=== PATIENT | female | born 1940 | race Asian ===

== ENCOUNTER 2017-03-10 07:45 | Emergency (ER) | payer OTHER ==
[~2017-03-10] VITALS: Ht 152.4 cm; Wt 61.4 kg
[2017-03-10] MEDS ORDERED: GLIP5 PO (07:51)
[2017-03-10] MEDS ORDERED: LOSA50TA37 PO (07:51)
[2017-03-10] MEDS ORDERED: AMLO-511 PO (07:51)
[2017-03-10] MEDS ORDERED: SIMV-260 PO (07:51)
[2017-03-10] MEDS ORDERED: NORT25 PO (07:51)
[2017-03-10] MEDS ORDERED: ALEN70TA48 PO (07:51)
[2017-03-10] MEDS ORDERED: METF850T2 PO (07:51)
[2017-03-10] MEDS ORDERED: ACETAMINOPHEN 1000 MG/ISO-OSM 100 ML IV ONE (08:15)
[2017-03-10] MEDS ORDERED: SODIUM CHLORIDE 0.9% 1,000 ML IV ONE (08:15)
[2017-03-10 08:25] LABS: EOSINOPHILS # (AUTO) 0.11 K/uL (0.00-0.70); EOSINOPHILS % (AUTO) 1.18 % (1.0-6.0); HEMATOCRIT 33.6 % (36-46); HEMOGLOBIN 11.4 g/dL (12.0-16.0); LYMPHOCYTES # (AUTO) 0.5 K/uL (1.0-4.8); LYMPHOCYTES % (AUTO) 5.3 % (22.0-44.0); MEAN CORPUSCULAR HEMOGLOBIN 28.7 pg (26.0-34.0); MEAN CORPUSCULAR HGB CONC 33.9 G/dL (31.0-37.0); MEAN CORPUSCULAR VOLUME 85 fL (80-100); MONOCYTES # (AUTO) 0.3 K/uL (0.1-1.0); MONOCYTES % (AUTO) 3.5 % (2.0-9.0); NEUTROPHILS # (AUTO) 8.5 K/uL (1.8-7.7); PLATELET COUNT (AUTO) 135 K/uL (150-450); RED BLOOD CELL COUNT(AUTO) 3.97 MIL/uL (4.00-5.20); RED CELL DISTRIBUTION WIDTH 14.8 % (11.5-14.5); WHITE BLOOD COUNT (AUTO) 9.4 K/uL (4.5-11.0)
[2017-03-10 08:26] LABS: NEUTROPHILS % (AUTO) 90.1 % (40.0-70.0)
[2017-03-10 08:27] LABS: RBC MORPHOLOGY COMMENT NORMAL RBC MORPH
[2017-03-10 08:33] LABS: APPEARANCE,URINE CLOUDY (CLEAR); GLUCOSE, URINE (UA) NEGATIVE (NEGATIVE); KETONES,URINE 15 mg/dL (NEGATIVE); LEUKOCYTE ESTERASE ,URINE MODERATE (NEGATIVE); OCCULT BLOOD,URINE MODERATE (NEGATIVE); PH,URINE 5.5 (5.0-8.0); PROTEIN,URINE SEE CONFIRM (NEGATIVE)
[2017-03-10 08:36] LABS: CALCIUM, TOTAL 8.3 mg/dL (8.8-10.5); CREATININE 1.03 mg/dL (0.60-1.30); POTASSIUM 3.9 mmol/L (3.5-5.1)
[2017-03-10 08:41] LABS: BILIRUBIN,TOTAL 1.1 mg/dL (0.1-1.0); TOTAL PROTEIN, SERUM 6.7 g/dL (6.4-8.2)
[2017-03-10 08:46] LABS: LACTIC ACID 1.5 mmol/L (0.4-2.0)
[2017-03-10 08:47] LABS: SULFOSALICYLIC ACID,URINE 3+ (Negative)
[2017-03-10 08:48] LABS: WBC,URINE 26-50 /HPF (0-5)
[2017-03-10] MEDS ORDERED: CefTRIAXone 1 GM/DEXTROSE 50 ML IV ONE (09:15)
[2017-03-10 09:41] VITALS: BP 112/54
== END 2017-03-10 10:55 | disposition short-term general hospital (02) ==
LOC: EMS 07:51
DX: N39.0 Urinary tract infection, site not specified (principal); E11.65 Type 2 diabetes mellitus with hyperglycemia; I10 Essential (primary) hypertension; E78.00 Pure hypercholesterolemia, unspecified
CPT/HCPCS: 36415; 51701; 71010; 80053; 81001; 83605; 85025; 87077; 87086; 87186; 93005; 96365; 96367; 99285; J0131; J0696; J7030

== ENCOUNTER 2024-04-08 06:50 | Emergency (ER) | payer MEDICARE, MEDICAID ==
[~2024-04-08] VITALS: Ht 154.9 cm; Wt 65.5 kg
[~2024-04-08 06:50] MED LIST: ALEN70TA65 PO; AMLO-257 PO; GLIP5TAB16 PO; LOSA-382 PO; METF-445 PO; NORT25 PO; SIMV-260 PO
[2024-04-08 07:11] VITALS: TEMP 97.8
[2024-04-08] MEDS: MECLIZINE HCL 25 MG TABLET PO ONE ×2 (07:22→10:08)
[2024-04-08] MEDS: SODIUM CHLORIDE 0.9% 1,000 ML IV ONE (07:22)
[2024-04-08 07:56] LABS: BASOPHILS % (AUTO) 0.4 % (0.0-2.0); EOSINOPHILS % (AUTO) 0.2 % (1.0-6.0); HEMATOCRIT 42.1 % (36-46); HEMOGLOBIN 13.6 g/dL (12.0-16.0); LYMPHOCYTES # (AUTO) 0.6 K/uL (1.0-4.8); LYMPHOCYTES % (AUTO) 8.2 % (22.0-44.0); MEAN CORPUSCULAR HEMOGLOBIN 26.8 pg (26.0-34.0); MEAN CORPUSCULAR HGB CONC 32.2 G/dL (31.0-37.0); MEAN CORPUSCULAR VOLUME 83 fL (80-100); MONOCYTES # (AUTO) 0.2 K/uL (0.1-1.0); MONOCYTES % (AUTO) 3.2 % (2.0-9.0); NEUTROPHILS # (AUTO) 6.2 K/uL (1.8-7.7); PLATELET COUNT (AUTO) 137 K/uL (150-450); RED BLOOD CELL COUNT(AUTO) 5.05 MIL/uL (4.00-5.20); RED CELL DISTRIBUTION WIDTH 15.9 % (11.5-14.5)
[2024-04-08 08:16] LABS: RBC MORPHOLOGY COMMENT NORMAL RBC MORPH
[2024-04-08 08:20] LABS: CALCIUM, TOTAL 9.2 mg/dL (8.8-10.5); CREATININE 1.32 mg/dL (0.60-1.30); POTASSIUM 4.1 mmol/L (3.5-5.1)
[2024-04-08 08:25] LABS: BILIRUBIN,TOTAL 0.7 mg/dL (0.1-1.0); TOTAL PROTEIN, SERUM 8.4 g/dL (6.4-8.2)
[2024-04-08 08:28] LABS: TROPONIN I-HIGH SENSITIVITY 5 ng/L (<51)
[2024-04-08 10:50] VITALS: BP 152/78; PULSE 72; RESP 15; O2SAT 97
[2024-04-08 10:52] LABS: APPEARANCE,URINE CLEAR (CLEAR); BILIRUBIN,URINE NEGATIVE (NEGATIVE); COLOR,URINE COLORLESS (YELLOW); GLUCOSE, URINE (UA) >=1000 mg/dL (NEGATIVE); KETONES,URINE NEGATIVE (NEGATIVE); LEUKOCYTE ESTERASE ,URINE NEGATIVE (NEGATIVE); NITRATE,URINE NEGATIVE (NEGATIVE); OCCULT BLOOD,URINE NEGATIVE (NEGATIVE); PROTEIN,URINE 30-70 mg/dL (NEGATIVE); SPECIFIC GRAVITIY, URINE 1.016 (1.003-1.030); UROBILINOGEN,URINE <=1.0 mg/dL (<=1.0)
[2024-04-08 11:05] LABS: BACTERIA,URINE Few /HPF (None Seen); RBC,URINE None Seen /HPF (0-2); SQUAMOUS EPITHELIAL CELL,UR Few /LPF (None Seen); WBC,URINE None Seen /HPF (0-5)
[2024-04-08] MEDS ORDERED: MECL-302 PO (11:21)
== END 2024-04-08 11:38 | disposition home or self-care (01) ==
LOC: EMS 06:50
DX: R42 Dizziness and giddiness (principal); E11.9 Type 2 diabetes mellitus without complications; I10 Essential (primary) hypertension; Z90.49 Acquired absence of other specified parts of digestive tract
CPT/HCPCS: 99285; 96360; 70450; 71045; 80053; 81001; 83880; 84484; 85025; 36415; 93005; J7030